=== PATIENT | male | born 1930 | race African-American/Black ===

== ENCOUNTER 2016-08-29 05:08 | Day surgery (SDC) | payer OTHER ==
[~2016-08-29] VITALS: Ht 188 cm; Wt 86.2 kg
--- NOTE | ~2016-08-29 | P ---
[facility] [place] [address] PROCEDURE REPORT Name: GURMEET BURNETT Room #: DEP [facility] M..#: [id number] Admission: 08/29/16 Attend Phys: Chapincito Cobian MD Discharge: 08/29/16 Date of : 34 Report #: [id number] THIS REPORT FOR: //name// CC: THEODORE physician/PCP Indio Mack MD DATE OF SERVICE: 08/29/2016 ENDOBRONCHIAL ULTRASOUND REPORT DATE OF SERVICE: 08/29/2016. PROCEDURES: Fiberoptic bronchoscopy as well as endobronchial ultrasound with biopsies of the level 7, 4R, 4L and 11R lymph nodes using endobronchial ultrasound for fine needle aspirate as well as transbronchial biopsies of RB6 in the right lower lobe. INDICATION: Right lower lobe mass with suggestion of right hilar mediastinal adenopathy, diagnostic and staging endobronchial ultrasound and bronchoscopy. ANESTHESIA: General endotracheal anesthesia. PROCEDURE NOTATION: After discussing risks and benefits of planned procedure with the patient, he desired to proceed. After obtaining informed consent, he was taken to the OR room 6 where he was placed under general endotracheal anesthesia with an 8.0 endotracheal tube by the anesthesia service. White light bronchoscope was then advanced through an endotracheal tube until the trachea was seen. The endotracheal tube was adjusted to allow good positioning for placement of the endobronchial ultrasound device. The endotracheal tube was then secured in position. White light bronchoscopy was then utilized. Airway was surveyed. Mainstem, lobar, segmental and subsegmental bronchi were all explored and appeared patent with no significant anatomic variation or change with the exception of RB6 in the right lower lobe with the orifice to take off the superior segment, there being edematous and with inability to pass the bronchoscope further to evaluate. This extended on to the lower lobe bronchus, but did not involve the more proximal part where it would have included the bronchus intermedius. White light bronchoscope was then removed, and endobronchial ultrasound device was then positioned. Lymph node stations were then surveyed in the usual fashion. Lymph node measurements included a 5.5 mm 4L lymph node that was sampled. A 9 mm level 7 lymph node that was sampled. A 6 mm 11L node that was not sampled. An 11 mm 11R node that was sampled and a 7 mm 4R node that was sampled. Specimens were sent for rapid onsite pathology, which showed lymph node positives, but no malignancy found. After extensive lymph node sampling, the endobronchial ultrasound was advanced into the right [address] [address] PROCEDURE REPORT Name: GURMEET BURNETT Room #: DEP [facility] Ariel.Neida.#: [id number] Admission: 08/29/16 Attend Phys: Chapincito Cobian MD Discharge: 08/29/16 Date of : 34 Report #: [id number] lower lobe where the right lower lobe mass was easily visualized congruent with the RB6 take off. The ultrasound was utilized to pass several 22 gauge FNA needles and sent for immediate rapid onsite pathology which confirmed what appeared to be non-small cell lung cancer. The needle was then removed. The white light bronchoscope was then reinserted, and forceps biopsies were obtained in the right lower lobe at RB6 and sent for histopathology. The patient tolerated well. No noted complications in recovery room at the time of dictation. No significant blood loss noted. <ELECTRONICALLY SIGNED> By: Chapincito Cobian MD 09/02/16 1508 1531 2229 Chapincito Cobian MD /nt
--- NOTE | ~2016-08-29 | S ---
[facility] [place] [address] SURGICAL PATH RPT PROCEDURE Name: YON BURNETT Room #: DEP [facility] M.R.#: [id number] Admission: 08/29/16 Date of : 34 Discharge: 08/29/16 Report #: [id number] Path Case #: [id number] PATHOLOGY REPORT COLLECTION DATE: 08/29/2016 RECEIVED DATE: 08/29/2016 SUBMITTING PHYS: Dr. 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 COMMENT: Immunohistochemical stains are performed in order to characterize the immunohistochemical stains in the invasive tumor and compare the results to the cytology [id number]. (Please see separate report) (Block A1) p40: strong nuclear reactivity present within the entire tumor TTF-1: rare tumor cells showing reactivity Co-review: Dr. Caitlin Rivera. (IUV:csd; d/t: 09/02/2016) PATHOLOGIST: Millie Anguiano M.D. REPORT ELECTRONICALLY SIGNED BY: Millie Anguiano M.D. DATE/TIME: 09/02/2016 13:48 * * * * * * * * * * * * GROSS PATHOLOGY: Received in formalin labeled "Yon Burnett, RLL lung mass biopsy forceps," are multiple segments of snaders soft tissue measuring 0.5 cm in aggregate dimensions and ranging from 0.1 to 0.3 cm in maximum dimension. The specimen is submitted entirely in cassette A1. (SNA; 09/01/2016) CLINICAL HISTORY: Lung mass INITIAL CPT CODE(S): A; 29000, 89898, 66670 [facility] [place] [address] SURGICAL PATH RPT PROCEDURE Name: YON BURNETT Room #: DEP [facility] Fuad#: [id number] Admission: 08/29/16 Date of : 34 Discharge: 08/29/16 Report #: [id number] Path Case #: [id number] Professional services performed by [facility] at [facility] [address] [facility] [place] [address] Technical services performed by [facility] at [address] [place] [address], [place] [address]. [facility] [address] [place] [address] PHONE: [phone] DIRECTOR: Jonathan Hendricks M.D. * * * END OF REPORT * * *
--- NOTE | ~2016-08-29 | CNG ---
[facility] [place] [address] CYTO-NONGYN REPORT PROCEDURE Name: YON BURNETT Room #: DEP [facility] M.R.#: [id number] Admission: 08/29/16 Date of : 34 Discharge: 08/29/16 Report #: [id number] Path Case #: [id number] CYTOPATHOLOGY REPORT COLLECTION DATE: 08/29/2016 RECEIVED DATE: 08/29/2016 SUBMITTING PHYS: Dr. Chapincito Cobian OTHER PHYS: * * * CORRECTED REPORT (SEE COMMENT) * * * CLINICAL HISTORY: 85 yr oldl AA, Mass on CT chest, PET SUV mild uptake SUV of 11.12, RLL lung mass with mediastinal adenopathy 3.4 x 3.0 cm: Radiology attached. See also [id number]. PROCEDURE: A. One pass performed by Dr. Dr. Cobian yielding fluid. Two H and E slides, and 35 mL from needle rinsed in formalin were submitted to the lab. B. One pass performed by Dr. Cobian yielding fluid. Two H and E slides, and 30 mL from needle rinsed in formalin were submitted to the lab. C. One pass performed by Dr. Cobian yielding fluid. Two H and E slides, and 45 mL from needle rinsed in formalin were submitted to the lab. D. One pass performed by Dr. Cobian yielding fluid. Two H and E slides, and 30 mL from needle rinsed in formalin were submitted to the lab. E. Passes performed by Dr. Cobian yielding fluid. Two H and E slides, and 25 mL from needle rinsed in formalin were submitted to the lab. SPECIMEN(S) RECEIVED: A.EBUS guided TBNA, lymph node 7 B.EBUS guided TBNA lymph node 4R C.EBUS guided TBNA, lymph node 4L D.EBUS guided TBNA, lymph node 11R E.EBUS guided TBNA, RLL mass * * * * * * * * * * * * FINAL DIAGNOSIS: A. Lymph node, 7, EBUS guided TBNA: - Negative for malignancy. Lymphocytes and lymphoid tangles present. B. Lymph node, 4T, EBUS guided TBNA: - No malignant cells identified. Scattered rare bronchial epithelial cells along with lymphoid tangles as well as lymphocytes present. C. Lymph node, 4L, EBUS guided TBNA: [address] [address] CYTO-NONGYN REPORT PROCEDURE Name: YON BURNETT Room #: DEP [facility].#: [id number] Admission: 08/29/16 Date of : 34 Discharge: 08/29/16 Report #: [id number] Path Case #: [id number] - No malignant cells identified. Few lymphocytes along with rare lymphoid tangles identified. D. Lymph node, 11R, EBUS guided TBNA: - No malignant cells identified. Lymphoid tangles identified. E. Mass, right lower lobe mass, EBUS guided TBNA: - POSITIVE FOR MALIGNANCY; FINDINGS COMPATIBLE WITH A SQUAMOUS CELL CARCINOMA WITH A MINUTE COMPONENT OF ADENO-SQUAMOUS CARCINOMA (PLEASE SEE COMMENT). *CORRECTED REPORT* to reflect the change in source on Part E from right upper lobe to right lower lobe. No change in diagnoses or immediate evaluations. (kg 09/04/16) COMMENT: Immunohistochemical stains are performed. (cell block E) TTF1 focal reactivity present within the same cells showing reactivity with p40 P40 strong nuclear reactivity present within most of the lesional material Synaptophysin nonreactive Findings are compatible with a squamous cell carcinoma with a minute component of adeno-squamous carcinoma. Co-review: Dr. Caitlin Rivera The concurrent biopsy tissue [id number] is pending at the time of this report. (please refer to a separate report for details). (IUV:all; d/t: 09/01/2016) PATHOLOGIST: Millie Anguiano M.D. REPORT ELECTRONICALLY SIGNED BY: Millie Anguiano M.D. DATE/TIME: 09/04/2016 11:44 * * * * * * * * * * * * GROSS PATHOLOGY: A. EBUS guided TBNA, lymph node 7: The specimen is labeled "Yon Burnett" and consists of two H and E slides. Thirty-five mL of clear colorless fluid in formalin from the needle rinse is also submitted and a cell block only was prepared from this material. B. EBUS guided TBNA lymph node 4R: The specimen is labeled "Yon Burnett" and consists of two H and E slides. Thirty mL of clear colorless fluid in formalin from the needle rinse is also submitted and a cell block only was prepared from this material. C. EBUS guided TBNA, lymph node 4L: The specimen is labeled "Yon Burnett" and consists of two H and E slides. Forty-five mL of cloudy white fluid in formalin from the needle rinse is also submitted and a cell block only was prepared from this material. [facility] [address] [place] [address] CYTO-NONGYN REPORT PROCEDURE Name: YON BURNETT Room #: [facility]#: [id number] Admission: 08/29/16 Date of : 34 Discharge: 08/29/16 Report #: [id number] Path Case #: [id number] D. EBUS guided TBNA, lymph node 11R: The specimen is labeled "Yon Burnett" and consists of two H and E slides. Thirty mL of cloudy white fluid in formalin from the needle rinse is also submitted and a cell block only was prepared from this material. E. EBUS guided TBNA, RLL mass: The specimen is labeled "Yon Burnett" and consists of two H and E slides. Twenty-five mL of cloudy red fluid in formalin from the needle rinse is also submitted and a cell block only was prepared from this material. (clt ) IMMEDIATE EVALUATION: A. Pass 1- Per Dr. Anguiano: Lymphoid tangles, mucus glands and lymphocytes. B. Pass 1- Per Dr. Anguiano: Lymphoid tangles present along with bronchial epithelial cells. C. Pass 1- Per Dr. Anguiano: One side with lymphoid tangles. D. Pass 1- Per Dr. Anguiano: Rare crushed lymphoid tangles. E. RLL mass- Per Dr. Anguiano: Positive for malignancy. CHIEF HUMAN RESOURCES OFFICER(S): NIKOS Mccain(ASCP) INITIAL CPT CODE(S): A; 14810, 38585, 17963 B; 13319, 78879, 88915 C; 11806, 54397, 73415 D; 23871, 06069, 06844 E; 73956, 72274, 34389, 25565, 10587, 80701 Professional services performed by [facility] at [facility] [address] [place] [address] Technical services performed by [facility] at [address] [place] [address], [address], [place] [address]. [facility] [address] [facility], [address] [place] [address] PHONE: [phone] DIRECTOR: Jonathan Hendricks M.D. * * * END OF REPORT * * *
[~2016-08-29 05:08] MED LIST: ASPIR 8181 MG PO; CARVEDILOL6.25 MG PO; CENTRUM SILVER1 EAC2 PO; FISH OIL 1,001000 M2 PO; GLIPIZIDE-METF1 EAC2 PO; IRON325 PO; LISINOPRIL-HCT1 EAC1 PO; LOVASTATIN40 MG PO; NITROGLYCERIN0.4 MG SUBLING; PANTOPRAZOLE SO40 M1 PO; VITAMIN D-32000 UNIT PO
[2016-08-29 10:58] LABS: HEMOGLOBIN 12.3 gm/dL (14.0-18.0)
[2016-08-29 11:00] VITALS: BP 159/77
[2016-08-29 11:09] LABS: PROTIME 10.7 Seconds (9.3-11.4)
[2016-08-29 15:54] VITALS: BP 159/77
== END 2016-08-29 16:55 | disposition home or self-care (01) ==
LOC: OR 05:08 → TBA 05:08 → OR 10:58
PROVIDERS: Internal Medicine Pulmonary Disease
DX: C34.31 Malignant neoplasm of lower lobe, right bronchus or lung (principal); I10 Essential (primary) hypertension; E78.00 Pure hypercholesterolemia, unspecified; K21.9 Gastro-esophageal reflux disease without esophagitis; E11.9 Type 2 diabetes mellitus without complications; M19.90 Unspecified osteoarthritis, unspecified site; D64.9 Anemia, unspecified; Z98.890 Other specified postprocedural states; Z87.891 Personal history of nicotine dependence
CPT/HCPCS: 50010; 62110; 70005

== ENCOUNTER 2016-10-31 02:53 | Emergency (ER) | payer OTHER ==
[~2016-10-31] VITALS: Ht 188 cm; Wt 88.5 kg
--- NOTE | ~2016-10-31 | EKG ---
[place] [address] [facility] [place] [address] ELECTROCARDIOGRAM REPORT Name: GURMEET BURNETT Room #: DEP Fuad#: [id number] Admission: 10/31/16 Attend Phys: Discharge: 10/31/16 Date of : 34 Report #: [id number] THIS REPORT FOR: //name// [facility] ED Test Date: 2016-10-31 Test Time: 03:02:49 Pat Name: GURMEET BURNETT Department: Room: Gender: Elevator Service Mechanic: FOREIGN : 1930 Requested By: Misael Zelaya Order Number: [id number] MD: Angelo Shah Measurements Intervals [place] Rate: 88 P: 71 NC: 192 QRS: 4 QRSD: 110 T: 115 QT: 339 QTc: 410 Interpretive Statements Sinus rhythm Nonspecific repol abnormality, diffuse leads No previous ECG available for comparison Electronically Signed On 10-31-2016 7:37:38 CDT by Angelo Shah [email or web address] <ELECTRONICALLY SIGNED> By: Angelo Shah MD, [facility] 10/31/16 0737 030 1 Angelo Shah MD, FACC /EPI
[2016-10-31] MEDS ORDERED: ZOFRAN ODT8 MG PO (03:27)
[2016-10-31 03:28] LABS: HEMATOCRIT 25.8 % (42.0-52.0); HEMOGLOBIN 9.5 gm/dL (14.0-18.0); MCH 33.7 pg (26.0-34.0); MCHC 36.6 g/dL (28.0-37.0); MCV 92.1 fL (80.0-100.0); PLATELET COUNT 137 thou/uL (150-400); RBC 2.81 mil/uL (4.50-6.00); RDW 13.4 % (10.5-14.5); WBC 2.1 thou/uL (4.0-11.0)
[2016-10-31] MEDS ORDERED: PERCOCET PO (03:29)
[2016-10-31 03:35] LABS: MANUAL DIFF YES
[2016-10-31 03:38] LABS: ANION GAP 10 mmol/L (7-16); BUN 33 mg/dL (7-18); CALCIUM 8.7 mg/dL (8.5-10.1); CHLORIDE 97 mmol/L (98-107); CO2 22 mmol/L (21-32); CREATININE 1.5 mg/dL (0.6-1.3); GLUCOSE 280 mg/dL (70-99); POTASSIUM 4.6 mmol/L (3.5-5.1); SODIUM 129 mmol/L (136-145)
[2016-10-31 03:47] LABS: TROPONIN-I < 0.04 ng/mL (<0.04-0.07)
[2016-10-31 04:11] LABS: ABSOLUTE NEUTROPHILS 1.8 thou/uL (1.4-8.2); NUCLEATED RBCS 1 /100WBC; TOTAL CELL COUNT 100
[2016-10-31] MEDS ORDERED: PERCOCET 5-3251 EACH PO (04:36)
== END 2016-10-31 05:05 | disposition home or self-care (01) ==
LOC: ER 02:53
PROVIDERS: Emergency Medicine
DX: G89.3 Neoplasm related pain (acute) (chronic) (principal); R07.9 Chest pain, unspecified; I10 Essential (primary) hypertension; K21.9 Gastro-esophageal reflux disease without esophagitis; E78.00 Pure hypercholesterolemia, unspecified; Z86.2 Personal history of diseases of the blood and blood-forming organs and certain disorders involving the immune mechanism; E11.8 Type 2 diabetes mellitus with unspecified complications; Z87.891 Personal history of nicotine dependence